=== PATIENT | female | born 1965 | race Caucasian/White ===

== ENCOUNTER 2019-06-13 07:09 | Outpatient (CLI) | payer BC, SELFPAY ==
--- NOTE | ~2019-06-13 | MM_ITS ---
EXAMINATION: MM screening [facility] w [facility] HISTORY: Screening mammogram TECHNIQUE: Craniocaudal and mediolateral oblique 3-D tomosynthesis images were obtained and synthetic 2-D images were generated. CAD analysis was submitted and interpreted. COMPARISON: 05/18/2018 bilateral digital screening mammogram 05/02/2017 bilateral digital screening mammogram 05/12/2016 bilateral diagnostic digital mammogram 04/05/2015 bilateral digital screening mammogram BREAST PARENCHYMAL COMPOSITION: There are scattered areas of fibroglandular density. FINDINGS: There is no evidence of suspicious mass, calcification, or architectural distortion to sugg est malignancy in either breast. There has been no suspicious interval change. IMPRESSION: 1. No mammographic evidence of malignancy. 2. Recommend routine screening mammography in one year. BI-RADS Category 1: Negative Reviewed, dictated and finalized at location A.
== END 2019-06-13 07:10 | disposition home or self-care (01) ==
LOC: ANHIMG 07:15
DX: Z12.31 Encounter for screening mammogram for malignant neoplasm of breast (principal)
CPT/HCPCS: 77063; 77067

== ENCOUNTER 2020-06-14 07:27 | Outpatient (CLI) | payer BC, SELFPAY ==
--- NOTE | ~2020-06-14 | MM_ITS ---
EXAMINATION: MM screening [facility] BI w juan HISTORY: Screening mammogram TECHNIQUE: Craniocaudal and mediolateral oblique 3-D tomosynthesis images were obtained and synthetic 2-D images were generated. CAD analysis was submitted and interpreted. COMPARISON: 06/13/2019, 05/18/2018, 05/02/2017 BREAST PARENCHYMAL COMPOSITION: There are scattered areas of fibroglandular density. FINDINGS: There is no evidence of suspicious mass, calcification, or architectural distortion to sugg est malignancy in either breast. There has been no suspicious interval change. IMPRESSION: 1. No mammographic evidence of malignancy. 2. Recommend routine screening mammography in one year. BI-RADS Category 1: Negative Reviewed, dictated and finalized at location A.
== END 2020-06-14 07:28 | disposition home or self-care (01) ==
PROVIDERS: Visit Provider Obstetrics & Gynecology
DX: Z12.31 Encounter for screening mammogram for malignant neoplasm of breast (principal)
CPT/HCPCS: 77063; 77067

== ENCOUNTER 2021-06-20 07:30 | Outpatient (CLI) | payer BC, SELFPAY ==
--- NOTE | ~2021-06-20 | MM_ITS ---
EXAMINATION: MM screening [facility] BI w juan HISTORY: Screening TECHNIQUE: Craniocaudal and mediolateral oblique 3-D tomosynthesis images were obtained and synthetic 2-D images were generated. CAD analysis was submitted and interpreted. COMPARISON: Comparison to multiple prior studies sequentially, with oldest reviewed study dated 08/2016. BREAST PARENCHYMAL COMPOSITION: There are scattered areas of fibroglandular density. FINDINGS: There is no evidence of suspicious mass, calcification, or architectural distortion to sugg est malignancy in either breast. There has been no suspicious interval change. IMPRESSION: 1. No mammographic evidence of malignancy. 2. Recommend routine screening mammography in one year. BI-RADS Category 1: Negative Reviewed, dictated and finalized at location A.
== END 2021-06-20 07:31 | disposition home or self-care (01) ==
PROVIDERS: Visit Provider Obstetrics & Gynecology
DX: Z12.31 Encounter for screening mammogram for malignant neoplasm of breast (principal)
CPT/HCPCS: 77063; 77067

== ENCOUNTER 2022-08-16 08:01 | Outpatient (CLI) | payer OTHER, SELFPAY ==
--- NOTE | ~2022-08-16 | MM_ITS ---
EXAMINATION: MM screening [facility] w [facility] HISTORY: Screening mammogram TECHNIQUE: Craniocaudal and mediolateral oblique 3-D tomosynthesis images were obtained and synthetic 2-D images were generated. CAD analysis was submitted and interpreted. COMPARISON: 06/12/2021, 06/14/2020, 06/13/2019 BREAST PARENCHYMAL COMPOSITION:There are scattered areas of fibroglandular density. FINDINGS: No suspicious mass, calcification, or architectural distortion are identified in either ping ast to suggest malignancy. There has been no suspicious interval change. IMPRESSION: No mammographic evidence of malignancy. Recommend routine screening mammography in one year. BI-RADS Category 1: Negative Reviewed, dictated and finalized at location .
== END 2022-08-16 08:02 | disposition home or self-care (01) ==
LOC: ANHIMG 08:03
PROVIDERS: PCP Nurse Practitioner; Visit Provider Obstetrics & Gynecology
DX: Z12.31 Encounter for screening mammogram for malignant neoplasm of breast (principal)
CPT/HCPCS: 77063; 77067

== ENCOUNTER 2023-08-25 08:48 | Outpatient (CLI) | payer BC, SELFPAY ==
--- NOTE | ~2023-08-25 | MM_ITS ---
EXAMINATION: MM screening [facility] BI w juan HISTORY: Screening mammogram TECHNIQUE: Craniocaudal and mediolateral oblique 3-D tomosynthesis images were obtained and synthetic 2-D images were generated. CAD analysis was submitted and interpreted. COMPARISON: 08/16/2022, 06/20/2021, 06/14/2020 BREAST PARENCHYMAL COMPOSITION:Not Dense. There are scattered areas of fibroglandular density. FINDINGS: No suspicious mass, calcification, or architectural distortion are identified in either ping ast to suggest malignancy. There has been no suspicious interval change. IMPRESSION: No mammographic evidence of malignancy. Recommend routine screening mammography in one year. BI-RADS Category 1: Negative Reviewed, dictated and finalized at location .
== END 2023-08-25 08:49 | disposition home or self-care (01) ==
PROVIDERS: PCP Nurse Practitioner; Visit Provider Obstetrics & Gynecology
DX: Z12.31 Encounter for screening mammogram for malignant neoplasm of breast (principal)
CPT/HCPCS: 77063; 77067

== ENCOUNTER 2024-09-17 07:16 | Outpatient (CLI) | payer BC, SELFPAY ==
--- NOTE | ~2024-09-17 | MM_ITS ---
EXAMINATION: MM screening [facility] BI w juan HISTORY: Screening TECHNIQUE: Craniocaudal and mediolateral oblique 3-D tomosynthesis images were obtained and synthetic 2-D images were generated. CAD analysis was submitted and interpreted. COMPARISON: Comparison to multiple prior studies sequentially, with oldest reviewed study dated 05/18. BREAST PARENCHYMAL COMPOSITION: Not dense: There are scattered areas of fibroglandular density. FINDINGS: There is no evidence of suspicious mass, calcification, or architectural distortion to sugg est malignancy in either breast. There has been no suspicious interval change. IMPRESSION: 1. No mammographic evidence of malignancy. 2. Recommend routine screening mammography in one year. BI-RADS Category 1: Negative Reviewed, dictated and finalized at location A.
--- OUTSIDE RECORDS SUMMARY | 2024-09-17 07:20 | XMS_ITS | Encounter Summary ---
Author Organization [facility] Address [address] [place] [address] Care Team Providers Care Group Leader [employer] Name Role Phone Roseanne Ocampo NP Primary Care Provider [phone] Encounter Details Date Type Department Care Team (Late st Contact Info) Description 10/19/2023 eCareer Message Enc [facility] Family Medicine - [place] [address] [facility] [address] [place], [place] [address] Roseanne Ocampo, KYLIE [address] [place] [address] test results 10/19/2023 Social History Tobacco Use Types Packs/Day Years Used Date Smoking Tobacco: Never Passive Smoke Exposure: Past Smokeless Tobacco: Never Comments:The provider can pr ovide you with more information about quitting. Alcohol Use Standard Drinks/Week Comments Not Currently 0 (1 standard drink = 0.6 oz pur e alcohol) 1-2 beers social monthly PHQ-2 Answer Date Recorded Patient Health Questionnaire-2 Score 0 10/19/2023 Comments No Sex and Gender Information Value Date Recorded Sex Assigned at Not on file Legal Sex Female 8:28 AM CDT Gender Identity Not on file Sexual Orientation Not on file documented as of this encounter Functional Status * Over the past 2 weeks, how often have you been bothered by any of the following problems? Question Answer Date of Assessment Author Status Little interest or pleasure in doing things Not at all 10/19/2023 8:32 AM CDT Julianna Workman MA Acti ve Feeling down, depressed, or hopeless Not at all 10/19/2023 8:32 AM CDT Julianna Workman MA Active Patient Health Questionnaire-2 Score 0 10/19/2023 8:32 AM CDT Julianna Workman M A Active documented as of this encounter Plan of Treatment Upcoming Encounters Date Type Department Care Team (Late st Contact Info) Description 10/20/2024 8:20 AM CDT Office Visit [facility] Family Medicine - [place] [address] [id number] Roseanne Ocampo NP [address] [place] [id number] documented as of this encounter Visit Diagnoses Not on filedocumented in this encounter Additional Health Concerns Assessment Noted Time PHQ-9 Depression Total Score: 0 10/02/19 21 11:13 AM CDT documented as of this encounter Care Teams Group Leader [employer] Relationship Specialty Start Date End Date Roseanne Ocampo NP [address] [place] [address] PCP - General NURSE PRACTITIONER 01/26/19 documented as of this encounter
--- OUTSIDE RECORDS SUMMARY | 2024-09-17 07:20 | XMS_ITS | Data Portability ---
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 no new issues [place] trip to [place] coming [place] with daughter Not available 05/23/2021 11:03:39 06/12/2022 06/12/2022 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 Lab cytology report, thin prep, smear or scraping, cervical or vaginal 2021 022 [facility], [address] [facility], [address], [place], [address], 2 11:14:06 Referral None recorded. Procedures None recorded. Surgeries None recorded. Imaging MAMMO, screening, digital, bilateral 2024 025 [email or web address], [address], [place], [address], 5 09:11:00 MAMMO, screening, digital, bilateral 2023 024 [email or web address] [facility], [address], [place], [address], 4 10:26:56 MAMMO, screening, digital, bilateral 2022 023 [facility], [address], [place], [address], 3 10:35:19 MAMMO, screening, digital, bilateral 2021 022 [facility], [address], [place], [address], 2 12:51:54 MAMMO, screening, digital, bilateral 2020 021 [facility], [address], [place], [address], 1 12:10:59 Medication Orders None recorded. Patient TargetsNo targets recorded. Patient Instructions Encounter Date Encounter Id Patient Instructions Last Modified By Organization Details Last Modified Time 05/17/2020 [id number] learning about breast cancer screening Not available 05/17/2020 15:03:17 05/23/2021 [id number] learning about breast cancer screening Not available 05/23/2021 10:55:41 06/12/2022 [id number] learning about breast cancer screening Not available 06/12/2022 10:35:16 06/16/2023 [id number] learning about breast cancer screening Not available 06/16/2023 10:41:43 06/17/2024 [id number] mammogram: about this test Not available 06/17/2024 10:54:02 Reason for Referral None Reported. Results Created Date Observation Date Name Description Value Unit Range Abnormal Flag Note LastModifiedBy Organization Detail LastModifiedTime 05/24/19 22 05/30/2021 IGP, RFX APTIM A HPV ASCU diagnosis: Marisela marcano NEGAT YUMIKO FOR INTRA EPITH ELIAL LESIO N OR LAURITASILAS KELLY . THIS SPECI MEN WAS RESCR EENED PART OF OUR QUALI TY CONTR OL PROGR AM. Not Available [facility] ([facility]) [address] [place], [address], 05/30/2021 11:14:06 05/24/19 22 05/30/2021 IGP, RFX APTIM A HPV ASCU specimen adequacy: Marisela marcano Satis facto ry for evalu ation . No endoc ervic al compo nent is ident ified . Not Available [facility] ([facility]) [address] [place], [address], 05/30/2021 11:14:06 05/24/19 22 05/30/2021 IGP, RFX APTIM A HPV ASCU clinician provided ICD10: Marisela marcano Z01.4 19 Not Available [facility] ([facility]) [address] [place], [address], 05/30/2021 11:14:06 05/24/19 22 05/30/2021 IGP, RFX APTIM A HPV ASCU performed by: Gerry Arambula (ASCP ) Not Available [facility] ([facility]) [address] [place], [address], 05/30/2021 11:14:06 05/24/19 22 05/30/2021 IGP, RFX APTIM A HPV ASCU QC reviewed by: Marisela campbelle Wendy , Cytot jin marcano Not Available [facility] ([facility]) [address] [facility], [place], [address], 05/30/2021 11:14:06 05/24/19 22 05/30/2021 IGP, RFX APTIM A HPV ASCU . . Not Available [facility] ([facility]) [address] [facility], [place], [address], 05/30/2021 11:14:06 05/24/19 22 05/30/2021 IGP, RFX APTIM A HPV ASCU note: Marisela marcano The Pap smear is a scree vernon test desig alvarez to aid in the detec tion of saleem ligna nt and malig nant condi tions of the uteri ne cervi x. It is not a diagn ostic proce dure and shoul d not be used as the sole means of detec ting cervi lupe cance r. Both false -posi tive and false -nega tive repor ts do occur . Not Available [facility] ([facility]) [address] [facility], [place], [address], 05/30/2021 11:14:06 05/24/19 22 05/30/2021 IGP, RFX APTIM A HPV ASCU test methodology: Marisela marcano This liqui d based ThinP rep(R ) pap test was scree alvarez with the use of an image guide d systelliott m. Not Available [facility] ([facility]) [address] [facility], [place], [address], 05/30/2021 11:14:06 05/24/19 22 05/30/2021 IGP, RFX APTIM A HPV ASCU . Marisela marcano The HPV DNA refle x crite luz maria were not met with this speci men resul t there fore, no HPV testi ng was perfo rmed. Not Available [facility] ([facility]) [address] [facility], [place], [address], 05/30/2021 11:14:06 05/24/19 22 05/23/2021 Human papil frank virus E6+E7 mRNA [Pres ence] in Cervi x by JING with probe detec tion Unknown Analyte Ordere d by an unspec ified provid er. Not Available Not Available 03:02:41 03/14/19 23 03/22/2022 Nonin vasiv e color ectal cance r DNA and occul t blood scree vernon [Pres ence] in Stool noninvasive colorectal cancer DNA and occult blood screening [presence] in stool Negati ve text: negati ve COLOG UARD RESUL T Negat yumiko Negat yumiko EXACT SCIEN [facility] (CLIA #[id number]) Not Available Not Available 06/17/2024 03:02:41 10/19/19 24 10/19/2023 Hepat itis C virus Ab [Pres ence] in Serum hepatitis C virus Ab [presence] in serum NON-RE ACTIVE text: non-re active HEPAT ITIS C AB NON-R EACTI VE NON-R EACTI VE 10/18 7:26 PM CDT [facility] Not Available Not Available 06/17/2024 03:02:41 06/18/19 25 06/22/2024 IGP, RFX APTIM A HPV ASCU diagnosis: COMMEN T NEGAT YUMIKO FOR INTRA EPITH ELIAL LESIO N OR LEELA MENDOZA . Not Available [facility] ([facility]) [address] [facility], [place], [address], 06/22/2024 16:30:54 06/18/19 25 06/22/2024 IGP, RFX APTIM A HPV ASCU specimen adequacy: COMMEN T Satis facto ry for evalu ation . No endoc ervic al compo nent is ident ified . Not Available [facility] ([facility]) [address] [facility], [place], [address], 06/22/2024 16:30:54 06/18/19 25 06/22/2024 IGP, RFX APTIM A HPV ASCU clinician provided ICD10: MARISELA Marcano Z12.4 Not Available [facility] ([facility]) [address] [place], [address], 06/22/2024 16:30:54 06/18/19 25 06/22/2024 IGP, RFX APTIM A HPV ASCU performed by: MARISELA Fields , Cytol ogist (ASCP ) Not Available [facility] ([facility]) [address] [place], [address], 06/22/2024 16:30:54 06/18/19 25 06/22/2024 IGP, RFX APTIM A HPV ASCU . . Not Available [facility] ([facility]) [address] [place], [address], 06/22/2024 16:30:54 06/18/19 25 06/22/2024 IGP, RFX APTIM A HPV ASCU note: MARISELA Marcano The Pap smear is a scree vernon test desig alvarez to aid in the detec tion of saleem ligna nt and malig nant condi tions of the uteri ne cervi x. It is not a diagn ostic proce dure and shoul d not be used as the sole means of detec ting cervi lupe cance r. Both false -posi tive and false -nega tive repor ts do occur . Not Available [facility] ([facility]) [address] [place], [address], 06/22/2024 16:30:54 06/18/19 25 06/22/2024 IGP, RFX APTIM A HPV ASCU test methodology: MARISELA Marcano This liqui d based ThinP rep(R ) pap test was scree alvarez with the use of an image guide rosa tran. Not Available [facility] ([facility]) [address] [place], [address], 06/22/2024 16:30:54 06/18/19 25 06/22/2024 IGP, RFX APTIM A HPV ASCU . COMMEN T The HPV DNA refle x crite luz maria were not met with this speci men resul t there fore, no HPV testi ng was perfo rmed. Not Available [facility] ([facility]) [address] [facility], [place], [address], 06/22/2024 16:30:54 06/15/19 21 06/14/2020 MAMMO , scree vernon, digit al, bilat eral No observ ation [facility] [address], [place], [address], 06/14/2020 12:19:10 06/21/19 22 06/20/2021 MAMMO , scree vernon, digit al, bilat eral No observ ation record ed. [facility] [address], [place], [address], 07/08/2021 09:09:17 Result Notes None recorded. Problems No Known Problems Procedures Surgical History Date Name Laterality Status Provider Name and Address Organization Details Recorded Time 5 Date of Last Pap Smear completed Pat Kiran RN [facility] 06/22/2024 17:13:19 2 Most Recent Mammogram completed SALINA Swenson [facility] 07/08/2021 09:09:39 4 LASIK completed Pat Kiran RN [facility] 11/14/2014 13:30:42 Imaging Results None recorded. Procedure Notes None recorded. Medical Equipment None Reported. Allergies No known drug allergies Medications Name Sig Start Date Stop Date Status Note LastModified by Organization Details LastModified Time sulfamethoxazole 800 mg-trimethoprim 160 mg tablet 05/23 completed Not Available Not Available Not Available prednisolone acetate 1 % eye drops,suspension 06/17 completed Not Available Not Available Not Available cephalexin 500 mg capsule 05/23 completed Not Available Not Available Not Available erythromycin 5 mg/gram (0.5 %) eye ointment 05/23 completed Not Available Not Available Not Available Zylet 0.3 %-0.5 % eye drops,suspension 05/23 completed Not Available Not Available Not Available Boostrix Tdap 2.5 Lf unit-8 mcg-5 Lf/0.5 mL intramuscular syringe 06/12 completed Not Available Not Available Not Available Fluvirin 8447-9589 45 mcg (15 mcg x 3)/0.5 mL intramuscular suspension 05/23 completed Not Available Not Available Not Available Fluvirin 2305-3334 45 mcg (15 mcg x 3)/0.5 mL intramuscular suspension 05/23 completed Not Available Not Available Not Available Fluvirin [id number] 45 mcg (15 mcg x 3)/0.5 mL intramuscular suspension 05/23 completed Not Available Not Available Not Available Shingrix (PF) 50 mcg/0.5 mL intramuscular suspension, kit active Not Available Not Availa ble Not Available Afluria Quad (PF) 60 mcg (15 mcg x 4)/0.5 mL IM syringe 05/23 completed Not Available Not Available Not Available Afluria Qd (36 mos up)(PF)60 mcg (15 mcg x4)/0.5 mL IM syringe 05/23 completed Not Available Not Available Not Available Vitals Date Recorded Body height Body mass index (BMI) Body weight Systolic And Diastolic Provider Name and Address Organization Details Last Updated DateTime 05/17/2020 160.02 cm 22.9 kg/m2 59672.42 g 102/72 mm[Hg] JUANA Diaz - [facility] 05/17/2020 15:01:02 Date Recorded Body weight Systolic And Diastolic Provider Name and Address Organization Details Last Updated DateTime 05/23/2021 43686.4 g 114/76 mm[Hg] SALINA Swenson [facility] 05/23/2021 10:48:16 Date Recorded Body height Body mass index (BMI) Body weight Systolic And Diastolic Provider Name and Address Organization Details Last Updated DateTime 06/12/2022 160.02 cm 23.8 kg/m2 70803.53 g 136/82 mm[Hg] SALINA Swensno - [facility] 06/12/2022 10:29:55 Date Recorded Body height Body mass index (BMI) Body weight Systolic And Diastolic Systolic And Diastolic Systolic And Diastolic Systolic And Diastolic Provider Name and Address Organization Details Last Updated DateTime 160.02 cm 24.5 kg/m2 47500.1 8 g 168/78 mm[Hg] 162/80 mm[Hg] 186/98 mm[Hg] 152/80 mm[Hg] SALINA Swenson [facility] 4 10:54:32 Date Recorded Body height Body mass index (BMI) Body weight Systolic And Diastolic Provider Name and Address Organization Details Last Updated DateTime 06/17/2024 160.02 cm 24.1 kg/m2 57643.71 g 165/97 mm[Hg] SALINA Swenson [facility] 06/17/2024 10:42:21 Social History Question Answer Notes LastModified by Organizat ion Details LastModified Time Tobacco Smoking Status Never Smoker SALINA Swenson [facility] 05/23/2021 10:49:34 In The 14 Days Before Symptom Onset, Have You Had Close Contact With A Laboratory-confirm ed COVID-19 While That Case Was Ill? No Information n ot available 05/23/2021 In The 14 Days Before Symptom Onset, Have You Had Close Contact With A Person Who Is Under Investigation For COVID-19 While That Person Was Ill? No Information not available 05/23/2021 Have You Been To An Area Known To Be High Risk For COVID-19? No Information not available 05/23/2021 What Was The Date Of Your Most Recent Tobacco Screening? 06/17/2024 Information not available 06/17/2024 How Many Children Do You Have? 2 Information not available 03/20/2015 Do You Use Protection During Sex? No Information not available 06/12/2022 What Is Your Relationship Status? Information not available 03/20/2015 Are You Sexually Active? Yes Information not available 06/12/2022 Has Tobacco Cessation Counseling Been Provided? No Information not available 05/23/2021 Sex: Female Functional Status Question Answer Note LastModified by Organization D etails LastModified Time Do you or have you ever used any other forms of tobacco or nicotine? No Information not available 05/23/2021 Mental Status None recorded. Family History Relationship Description Onset Age of this Age Resolved Age Notes LastModified by Organization Details LastModified Time Maternal Grandmother Malignant tumor of breast [email or web address] Not available 11:55:18 Medical History Condition Response Other N High Blood Pressure N Breast Cancer N Thyroid Problems N Kidney or Bladder Problems N Lung Disease N GI Problems N Depression N Blood Clots N Acne N Breast Problem N Eating Disorder N Anemia N Anesthesia Complications N Headaches/Migraines N Ovarian Cancer N Diabetes N Anxiety Disorder N Muscle, Joint, or Bone Problems N Blood Transfusions N Seizures/Epilepsy N Polyps N Infertility N Acid Reflux (GERD) N Cancer N Abuse/Domestic Violence N Asthma N Endometriosis N High Cholesterol N Hepatitis N Liver Disease N Heart Disease N Pre-Eclampsia N Osteoporosis N Gynecological History Statement/Question Response Abnormal Pap N Menses Monthly N STIs/STDs N HPV Vaccine N Date of Last Pap Smear 06/17/2024 Sexual Problems? N Current Control Method Partner Vas ectomy Most Recent Mammogram 06/20/2021 LMP Approximate Obstetrics History GPAL:G 2 P 2 0 0 2 Type Value Full Term 2 Living 2 Total 2 Immunizations Vaccine Type Date Status Note Provider Nam e and Address Organization Details Recorded Time Influenza, split virus, quadrivalent, preservative 9 completed Rafia Foster RMA [place], [place] - [facility] 06/12/2022 10:20:29 Influenza, adjuvanted, trivalent, PF 7 completed Rafia Foster [place] [facility] 06/12/2022 10:20:29 Influenza, MDCK, quadrivalent, PF 2 completed Rafia Foster [place] [facility] 06/12/2022 10:20:29 Influenza, MDCK, quadrivalent, PF 0 completed Rafia Foster [place] [facility] 06/12/2022 10:20:29 zoster recombinant 0 completed Rafia Foster [place] [facility] 06/12/2022 10:20:29 zoster recombinant 9 completed Rafia Foster [place] [facility] 06/12/2022 10:20:29 COVID-19, mRNA, LNP-S, PF, 30 mcg/0.3 mL dose 1 completed Rafia Foster [place] [facility] 06/12/2022 10:20:29 COVID-19, mRNA, LNP-S, PF, 30 mcg/0.3 mL dose 1 completed Rafia [place] [facility] 06/12/2022 10:20:29 COVID-19, mRNA, LNP-S, PF, 30 mcg/0.3 mL dose 0 completed Rafia [place] [facility] 06/12/2022 10:20:29 COVID-19, mRNA, LNP-S, PF, 30 mcg/0.3 mL dose, mark-sucrose 2 completed Rafia Foster [place] [facility] 06/12/2022 10:20:29 COVID-19, mRNA, LNP-S, bivalent, PF, 50 mcg/0.5 mL or 25mcg/0.25 mL dose 2 completed Rfaia Foster [place] [facility] 06/12/2022 10:20:29 Tdap 6 completed Rafia Foster [place] [facility] 06/12/2022 10:20:29 Influenza, split virus, trivalent, preservative 3 completed Rafia [place] [facility] 06/12/2022 10:20:29 Influenza, split virus, trivalent, preservative 4 completed Rafia [place] [facility] 06/12/2022 10:20:29 Influenza, split virus, trivalent, preservative 1 completed Rafia [place] [facility] 06/12/2022 10:20:29 Influenza, split virus, trivalent, PF 6 completed Rafia Kristin, [place] [facility] 06/12/2022 10:20:29 Influenza, split virus, trivalent, PF 5 completed Rafia Foster, [place] [facility] 06/12/2022 10:20:29 Influenza, split virus, quadrivalent, PF 8 completed Rafia Foster, [place] [facility] 06/12/2022 10:20:29 Influenza, MDCK, quadrivalent, PF 3 completed Raifa Foster, [place] [facility] 06/16/2023 10:28:45 COVID-19, mRNA, LNP-S, PF, mark-sucrose, 30 mcg/0.3 mL 3 completed Rafia Foster, [place] [facility] 06/16/2023 10:28:45 Past Encounters Encounter ID Performer Location Encounter Start Date Encounter Closed Date Diagnosis/Indication Diagnosis SNOMED-CT Code Diagnosis ICD10 Code Diagnosis Note [id number] MD Hernandez Fry ([place] [address]) [address] [facility] [place] [address] 03/20/2015 11:15:30 03/20/2015 14:58:16 Gynecologic examination 17044946 Z01.419 Screening for malignant neoplasm of breast 099273648 Z12.39 [id number] MD Hernandez Fry ([place] [address]) [address] [facility] [place] [address] 03/21/2016 11:02:20 03/24/2016 09:55:05 Screening for malignant neoplasm of colon 721632097 Z12.11 Gynecologi c examination 83423545 Z01.419 Screening for malignant neoplasm of breast 975889015 Z12.39 [id number] MD Hernandez Fry ([place] [address]) [address] [facility] [place] [address] 03/23/2017 10:44:26 03/23/2017 17:52:37 Body mass index 20-24 - normal 559742899 Z68.21 Gynecologi c examination 42403658 Z01.419 Screening for malignant neoplasm of breast 758066365 Z12.39 Screening for malignant neoplasm of colon 852529117 Z12.11 [id number] MD Hernandez Fry [address] [facility] [place] [address] 03/29/2018 10:55:13 03/29/2018 12:43:25 Screening for malignant neoplasm of colon 527257053 Z12.11 Gynecologi c examination 40126529 Z01.419 Screening for malignant neoplasm of breast 570095113 Z12.39 [id number] MD Hernandez Fry 14 OB [address] [facility] [place] [address] 04/04/2019 10:41:49 04/05/2019 10:17:39 Screening for malignant neoplasm of colon 941118162 Z12.11 Gynecologi c examination 27064737 Z01.419 Screening for malignant neoplasm of breast 700304052 Z12.39 [id number] MD Hernandez Fry 14 OB [address] [facility] [place] [address] 05/17/2020 14:49:10 05/18/2020 13:15:42 Gynecologic examination 54067218 Z01.419 Screening for malignant neoplasm of breast 081484941 Z12.39 Menopause present 083141 006 N95.1 [id number] MD Hernadnez Fry 14 OB [address] [facility] [place] [address] 05/23/2021 10:15:46 05/23/2021 19:33:53 Gynecologic examination 54349650 Z01.419 Screening for malignant neoplasm of breast 501910444 Z12.39 Menopause present 078980 006 N95.1 [id number] MD Hernandez Fry 14 OB [address] [facility] [place] [address] 06/12/2022 09:54:42 06/17/2022 10:29:52 Gynecologic examination 35189938 Z01.419 Screening for malignant neoplasm of breast 901982404 Z12.39 [id number] MD Hernandez Fry 14 OB [address] [facility] [place] [address] 06/16/2023 10:03:04 06/17/2023 18:16:16 Gynecologic examination 32421855 Z01.419 Screening for malignant neoplasm of breast 554315069 Z12.39 [id number] MD Hernandez Fry 14 OB [address] [facility] [place] [address] 06/17/2024 10:07:49 06/24/2024 08:00:34 Depression screening negative 4319656915 07506 Z13.31 Gynecologi c examination 94390609 Z01.419 Screening mammography 24 000295 Z12.31 Menopause present 140618 006 Z78.0 Health Concerns Section Related Observation LastModified by Organization Detai ls LastModified Time None Recorded Concern Status LastModified by Organization Details LastModified Time None Recorded Advance Directives Directive None Recorded Payers Insurance Date Sequence Insurance Name Policy Number Policy Atkins Covered Member ID Atkins Member ID Guarantor Name 05/22/2021 1 [place] [id number] Pankaj Mclean [id number] Sheba Mclean 02/21/2022 1 [place] [id number] Pankaj Mclean [id number] Sheba Mclean 04/04/2024 1 [facility] - [facility] (PPO) Sheba Mclean [id number] Sheba Mclean 03/29/2018 1 [place] [id number] Pankaj Mclean [id number] Sheba Mclean 04/04/2024 1 [facility] ADMINISTRATORS [place] - [place]) Sheba Mclean [id number] Sheba Mclean 04/09/2023 2 [employer] [place] - [place] ON OR AFTER 2020 (MEDICAID REPLACEMENT - HMO) Jace Mclean [id number] Sheba Mclean 06/24/2024 1 [place] [id number] Pankaj Mclean [id number] Sheba Mclean 04/04/2024 2 [employer] (PPO) Sheba Mclean [id number] Sheba Mclean 04/04/2024 3 [employer] (PPO) Sheba Mclean [id number] Sheba Mclean 06/16/[address] [facility] Jace Mclean [id number] Sheba Mclean Notes Date Note Type Note Provider Name and Address Organization Details Recorded Time 1 text/html Annual GYNReported by PatientGenitourinary symptomsFor urinary symptoms, patient reportsno hematuriaandno incontinence. For vulva, patient reportsno genital lesion. For vagina, patient reportsnormal vaginal discharge.Breast symptomsFor breast, patient reportsno breast pain,no breast lump, andno nipple discharge.Endocrine symptomsFor sexual complaints, patient reportsno sexual complaints,no pain during intercourse, andnormal libido. For menopausal symptoms, patient reportsno menopausal symptomsandnormal vaginal lubrication.Psychological symptomsFor psychological symptoms, patient reportsno depression,no anxiety, andno pmdd.ROS as noted in the [facility] Hanna Quinones MD Attn: Accounting,[address] [place], [address], [facility] 05/17/2020 15:12:28 2 text/html Annual GYNReported by PatientGenitourinary symptomsFor urinary symptoms, patient reportsno hematuriaandno incontinence. For vulva, patient reportsno genital lesion. For vagina, patient reportsnormal vaginal discharge.Breast symptomsFor breast, patient reportsno breast pain,no breast lump, andno nipple discharge.Endocrine symptomsFor sexual complaints, patient reportsno sexual complaints,no pain during intercourse, andnormal libido. For menopausal symptoms, patient reportsno menopausal symptomsandnormal vaginal lubrication.Psychological symptomsFor psychological symptoms, patient reportsno depression,no anxiety, andno pmdd.ROS as noted in the [facility] Hanna Quinones MD Attn: Accounting,[address] [place], [address], [facility] 05/23/2021 11:04:07 3 text/html Annual GYNReported by PatientGenitourinary symptomsFor urinary symptoms, patient reportsno hematuriaandno incontinence. For vulva, patient reportsno genital lesion. For vagina, patient reportsnormal vaginal discharge.Breast symptomsFor breast, patient reportsno breast pain,no breast lump, andno nipple discharge.Endocrine symptomsFor sexual complaints, patient reportsno sexual complaints,no pain during intercourse, andnormal libido. For menopausal symptoms, patient reportsno menopausal symptomsandnormal vaginal lubrication.Psychological symptomsFor psychological symptoms, patient reportsno depression,no anxiety, andno pmdd.ROS as noted in the HPI Hanna Quinones MD Attn: Accounting,[address] [place], [address], [facility] 06/12/2022 10:43:46 4 text/html Annual GYNReported by PatientGenitourinary symptomsFor urinary symptoms, patient reportsno hematuriaandno incontinence. For vulva, patient reportsno genital lesion. For vagina, patient reportsnormal vaginal discharge.Breast symptomsFor breast, patient reportsno breast pain,no breast lump, andno nipple discharge.Endocrine symptomsFor sexual complaints, patient reportsno sexual complaints,no pain during intercourse, andnormal libido. For menopausal symptoms, patient reportsno menopausal symptomsandnormal vaginal lubrication.Psychological symptomsFor psychological symptoms, patient reportsno depression,no anxiety, andno pmdd.ROS as noted in the HPI Hanna Quinones MD Attn: Accounting[address] [place], [address], [facility] 06/16/2023 11:00:31 5 text/html Annual GYNReported by PatientGenitourinary symptomsFor urinary symptoms, patient reportsno hematuriaandno incontinence. For vulva, patient reportsno genital lesion. For vagina, patient reportsnormal vaginal discharge.Breast symptomsFor breast, patient reportsno breast pain,no breast lump, andno nipple discharge.Endocrine symptomsFor sexual complaints, patient reportsno sexual complaints,no pain during intercourse, andnormal libido. For menopausal symptoms, patient reportsno menopausal symptomsandnormal vaginal lubrication.Psychological symptomsFor psychological symptoms, patient reportsno depression,no anxiety, andno pmdd.ROS as noted in the HPI 2 grandkids; 4 mos and 6 days !!!'no real menopausal issues Hanna Quinones MD Attn: Accounting[address] [place], [address], [facility] 06/17/2024 11:08:29 OBGyn Episode No OBEpisode recorded.
--- OUTSIDE RECORDS SUMMARY | 2024-09-17 07:20 | XMS_ITS | Encounter Summary ---
Author Organization [facility] Address [address] [place] [address] Care Team Providers Care Clearance Rep Name Role Phone Roseanne Ocampo NP Primary Care Provider [phone] Encounter Details Date Type Department Care Team (Late st Contact Info) Description 04/25/2024 PoshVinet Message Enc [facility] Family Medicine - [place] [address] [facility] [address] [place], [place] [address] Roseanne Ocampo NP [address] [place] [address] vaccine updated information for chart Social History Tobacco Use Types Packs/Day Years [...] on file documented as of this encounter Progress Notes * Julianna Workman MA - 04/25/2024 2:13 PM CST Immunizations logged [facility] * Roseanne Ocampo NP - 04/25/2024 12:23 PM CST See below. [facility] documented in this encounter Plan of Treatment Upcoming Encounters Date Type Department Care Team (Late st Contact Info) Description 10/20/2024 8:20 AM CDT Office Visit [facility] Family [facility] - [place] [address] [address] Roseanne Ocampo NP [address] [place] [address] documented as of this encounter Visit Diagnoses Not on filedocumented in this encounter Additional Health Concerns Assessment Noted Time PHQ-9 Depression Total Score: 0 10/02/19 21 11:13 AM CDT documented as of this encounter Care Teams Clearance Rep Relationship Specialty Start Date End Date Roseanne Ocampo NP [facility] [place] [address] PCP - General NURSE PRACTITIONER 01/26/19 documented as of this encounter
--- OUTSIDE RECORDS SUMMARY | 2024-09-17 07:20 | XMS_ITS | Clinical Summary ---
Author Organization [facility] Address [address] [place] [address] Care Team Providers Care Echocardiography Radiology Technologist Name Role Phone Roseanne Ocampo NP Primary Care Provider [phone] Allergies No known active allergies Medications vitamin D3, cholecalciferol , 5000 UNITS capsule Take 1 capsule (125 mcg total) by mouth daily. Active calcium carbonate (OS-BAKARI) 600 MG tablet Take 1 tablet (600 mg total) by mouth daily. 09/30/2021 Active Cyanocobalamin [address] 1 tablet under the tongue daily. Active fish oil (OMEGA-3 FATTY ACID) 1000 MG Cap capsule Take 2 capsules (2,000 mg total) by mouth daily. Active cetirizine (ZYRTEC) 10 MG tablet Take 1 tablet (10 mg total) by mouth daily. Active Active Problems No known active problems Resolved Problems Problem Noted Date Diagnosed Date Resolved Date Hyperlipidemia, unspecified hyperlipidemia type 10/01/2020 10/09/2021 No known health problems 01/31/201912/2019 ([facility]) 02/01/20 19 Overview (01/31/2019): 2 vaginal deliveries Vertigo 01/31/2019 Immunizations Immunization Administration Dates Next Due Fluad influenza vaccine, Kris drivalent (aIIV4), Inactivated, adjuvanted, preservative free, 0.5 mL,IM use 11/03/2016 Flucelvax 6 Months+ (Prefill ed Syringe) 2019 Influenza (Generic) 11/09/2023,11/20/2020,2018 Influenza Adult (Generic) 11/22/2022,,11/04/2017,2015,11/14/2014,11/11/2013,10/22/2012 PFIZER COVID-19 (ISRAEL CAP), MRNA, LNP-S, PF, 30 MCG/0.3 ML ALMA-SUCROSE, IM 07/15/2021 PFIZER COVID-19 (ORIGINAL FORMULATION, PURPLE CAP) mRNA, LNP-S, PF, 30 MCG/0.3 ML DOSE 12/07/2020,03/06/2020,02/14/2020 Shingrix 04/02/2019,01/31/2019 Tdap (Generic) 11/09/2023,06/11/2015 Family History Medical History Relation Comments car accident Father Breast Cancer Maternal Grandmother Diabetes Maternal Grandmother Late 70 s onset age 82 Cancer Mother Cervical cancer Age 42 ,smoker Relation Status Comments Father Maternal Grandmother Mother Social History Tobacco Use Types Packs/Day Years Used Date Smoking Tobacco: Never Passive Smoke Exposure: Past Smokeless Tobacco: Never Tobacco Cessation:Counseling Given: No Comments:The provider can provide you with more information about quitting. Alcohol [...] on file Sexual Orientation Not on file Last Filed Vital Signs Vital Sign Reading Time Taken Comments Blood Pressure 135/82 10/19/2023 8:33 AM CDT Pulse 60 10/19/2023 8:33 AM CDT Temperature 36.3 C (97.3 F) 10/19/2023 8:33 AM CDT Respiratory Rate 20 10/19/2023 8:33 AM CDT Oxygen Saturation 100% 10/19/2023 8:33 AM CDT Inhaled Oxygen Concentration - - Weight 60.3 kg (133 lb) 10/19/2023 8:33 AM CDT Height 160 cm (5' 3) 10/19/2023 8:33 AM CDT Body Mass Index 23.56 10/19/2023 8:33 AM CDT Plan of Treatment Upcoming Encounters Date Type Department Care Team (Late st Contact Info) Description 10/20/2024 8:20 AM CDT Office Visit [facility] Family Medicine - [place] [address] [facility] [address] [place] [address] Roseanne Ocampo NP [address] [place] [address] Health Maintenance Due Date Last Done Comments Cervical Cancer Screening Pap Smear (Age 30 to 64) Every 3 Years 1965 Hepatitis B Vaccines (1 of 3 - 19+ 3-dose series) 1984 Pneumococcal Vaccine: 50+ Years (1 of 1 - PCV) 11/25/2015 PHQ-2 (Physician [place]) 02/24/2024 10/19/2023 Annual Physical 10/18/2024 10/19/2023, 09/24, 10/09/2021, Additional history exists Colorectal Cancer Screening FIT-DNA (3 Years) 03/14/2025 03/14/2022, 03/14/2022, 02/17/2019 Cervical Cancer Screening Pap with HPV Testing (Age 30 to 64) Every 5 Years 05/23/2026 05/23/2021 Cervical Cancer Screening with HPV 05/23/2026 DTaP, Tdap and Td Vaccines (3 - Td or Tdap) 11/08/2033 11/09/2023, 06/11/2015 Zoster Vaccines Completed 04/02/2019, 01/31/2019 Hepatitis C Completed 10/19/2023 COVID-19 Vaccine Completed 11/09/2023, , 12/14/2021, Additional history exists Meningococcal B Vaccine Aged Out No l onger eligible based on patient's age to complete this topic Meningococcal Vaccine Aged Out No tiarra herminia eligible based on patient's age to complete this topic RSV Immunizations Under 20 Months Aged Out No longer eligible based on patient's age to complete this topic Procedures Procedure Name Priority Date/Time Associated Diagnosis Comments HEPATITIS C ANTIBODY Routine 10/19/2023 9:07 AM CDT Need for hepatitis C screening test COLOGUARD (EXACT SCIENCE) Routine 03/14/2022 4:[address] CLEANER Screen for colon cancer OUTSIDE CYTOPATH CERV/VAG INTERPRET (PAP) 05/23/2021 from Last 3 Months or Most Recently Relevant to Health Maintenance Results * HEPATITIS C ANTIBODY (10/19/2023 9:07 AM CDT) HEPATITIS C AB NON-REACTI VE NON-REACT YUMIKO 10/19/2023 7:26 PM CDT [facility] Comment: ANTIBODIES TO HCV NOT DETECTED. DOES NOT EXCLUDE THE POSSIBILITY OF EXPOSURE TO HCV. 10/19/2023 9:07 AM CDT us Roseanne Ocampo NP LABORATORY Final Res ult [facility] [address] [place] [address], [id number] * COLOGUARD (EXACT SCIENCE) (03/14/2022 4:[address] CLEANER) COLOGUARD RESULT Negative Negative [facility] (CLIA #:[id number]) Comment: NEGATIVE TEST RESULT. A negative Cologuard result indicates a low likelihood that a colorectal cancer (CRC) or advanced adenoma (adenomatous polyps with more advanced pre-malignant features) is present. The chance that a person with a negative Cologuard test has a colorectal cancer is less than 1 in 1500 (negative predictive value >99.9%) or has an advanced adenoma is less than 5.3% (negative predictive value 94.7%). These data are based on a prospective cross-sectional study of 10,000 individuals at average risk for colorectal cancer who were screened with both Cologuard and colonoscopy. (Janis Blanchard, N Engl J Med 2014;370(14):0896-0828) The normal value (reference range) for this assay is negative. COLOGUARD RE-SCREENING RECOMMENDATION: Periodic colorectal cancer screening is an important part of preventive healthcare for asymptomatic individuals at average risk for colorectal cancer. Following a negative Cologuard result, the [place] [employer] and U.S. Multi-Society Task Force screening guidelines recommend a Cologuard re-screening interval of 3 years. References: [place] [employer] Guideline for Colorectal Cancer Screening: https://www.cancer.org/cancer/ubfvx-lypyfe-lqtzmr/qthlqqibz-jmbzjxtxt-martfiy/ac s-rec ommendations.html.; Alok DK, Marco Antonio CRAWFORD, Ngoc BartonK, Colorectal Cancer Screening: Recommendations for Physicians and Patients from the U.S. Multi-Society Task Force on Colorectal Cancer Screening , Am J Gastroenterology 2017; 112:5659-3762. TEST DESCRIPTION: Composite algorithmic analysis of stool DNA-biomarkers with hemoglobin immunoassay. Quantitative values of individual biomarkers are not reportable and are not associated with individual biomarker result reference ranges. Cologuard is intended for colorectal cancer screening of adults of either sex, 45 years or older, who are at average-risk for colorectal cancer (CRC). Cologuard has been approved for use by the U.S. FDA. The performance of Cologuard was established in a cross sectional study of average-risk adults aged 50-84. Cologuard performance in patients ages 45 to 49 years was estimated by sub-group analysis of near-age groups. Colonoscopies performed for a positive result may find as the most clinically significant lesion: colorectal cancer [4.0%], advanced adenoma (including sessile serrated polyps greater than or equal to 1cm diameter) [20%] or non- advanced adenoma [31%]; or no colorectal neoplasia [45%]. These estimates are derived from a prospective cross-sectional screening study of 10,000 individuals at average risk for colorectal cancer who were screened with both Cologuard and colonoscopy. (Janis Zuleta al, N Engl J Med 2014;370(14):8256-1084.) Cologuard may produce a false negative or false positive result (no colorectal cancer or precancerous polyp present at colonoscopy follow up). A negative Cologuard test result does not guarantee the absence of CRC or advanced adenoma (pre-cancer). The current Cologuard screening interval is every 3 years. ([place] [employer] and U.S. Multi-Society Task Force). Cologuard performance data in a 10,000 patient pivotal study using colonoscopy as the reference method can be accessed at the following location: www.NetIQ.Openplay/results. Additional description of the Cologuard test process, warnings and precautions can be found at www.cologYoopiesrd.com. STOOL STOOL SPECIMEN / Unknown 03/14/2022 4:[address] CLEANER 03/15/2022 11:[address] CLEANER Roseanne Ocampo NP BODY FLUIDS AND STOOLS OR DERABLES Final Result [facility] [employer] [address] [place] [address], [employer] (CLIA #:[id number]) [address] [place] [address] * PAP SMEAR WITH HPV (05/23/2021) 05/23/2021 Narrative 05/23/2021 Ordered by an unspecified provider. Documents Scanned SCANNING Final Result from Last 3 Months or Most Recently Relevant to [place] [id number] [facility] Care Teams Echocardiography Radiology Technologist Relationship Specialty Start Date End Date Roseanne Ocampo NP [address] [place] [address] PCP - General NURSE PRACTITIONER 01/26/19
--- OUTSIDE RECORDS SUMMARY | 2024-09-17 07:20 | XMS_ITS | Encounter Summary ---
Author Organization [facility] Address [address] [place] [address] Care Team Providers Care Acetylene Plant Operator Name Role Phone Roseanne Ocampo NP Primary Care Provider [phone] Encounter Details Date Type Department Care Team (Late st Contact Info) Description 11/09/2023 MyChart Message Enc [facility] [address] [id number] Roseanne Ocampo NP [address] [place], [place] [address] calcium scor results Social History Tobacco Use Types Packs/Day Years [...] on file documented as of this encounter Plan of Treatment Upcoming Encounters Date Type Department Care Team (Late st Contact Info) Description 10/20/2024 8:20 AM CDT Office Visit [facility] [address] [facility] [address] [place], [place] [address] Roseanne Ocampo NP [address] [place], [place] [id number] documented as of this encounter Visit Diagnoses Not on filedocumented in this encounter Additional Health Concerns Assessment Noted Time PHQ-9 Depression Total Score: 0 10/02/19 21 11:13 AM CDT documented as of this encounter Care Teams Acetylene Plant Operator Relationship Specialty Start Date End Date Roseanne Ocampo NP [address] [place] [address] PCP - General NURSE PRACTITIONER 01/26/19 documented as of this encounter
== END 2024-09-17 07:17 | disposition home or self-care (01) ==
LOC: ANHIMG 07:18
PROVIDERS: PCP Nurse Practitioner; Visit Provider Obstetrics & Gynecology
DX: Z12.31 Encounter for screening mammogram for malignant neoplasm of breast (principal)
CPT/HCPCS: 77063; 77067